=== PATIENT | male | born 2000 | race Caucasian/White ===

== ENCOUNTER 2022-03-05 21:18 | Emergency (ER) | payer SELFPAY ==
[~2022-03-05] VITALS: Ht 177.8 cm; Wt 72.6 kg
[~2022-03-05 21:18] MED LIST: CODACEE120 PO; Norco 5-325 Ta1 EACH PO; SILSUL1TC TOP
[2022-03-05] MEDS ORDERED: CYCL10 PO (22:30)
[2022-03-05] MEDS ORDERED: KETO10 PO (22:30)
== END 2022-03-05 22:34 | disposition home or self-care (01) ==
LOC: ER 21:18
DX: M54.50 Low back pain, unspecified (principal); G89.29 Other chronic pain
CPT/HCPCS: A9270